=== PATIENT | female | born 1950 | race Caucasian/White ===

== ENCOUNTER 2019-08-02 13:39 | Outpatient (CLI) | payer MEDICARE, MEDICAID, SELFPAY ==
--- NOTE | 2019-08-02 13:30 | USCV_ITS ---
Noah Harris Age: 69 Gender: F : 1950 Exam Date: 08/02/2019 14:02 Ordering Phys: Candice Montague MD ([email or web address]) Technologist: Kitty Rajput Exam Location: [facility] [place] Indication: CAROTID ARTERY DISEASE Risk Factors: Previous Vascular Surgery: Right Brachial BP: / Left Brachial BP: / Right Left Velocity (cm/s) Spectral Plaque Velocity (cm/s) Spectral Plaque Syst/Diast Broadening Syst/Diast Broadening 87.10/ 18.70 Prox CCA 77.20 / 17.60 70.60/ 15.40 Mid CCA 84.90 / 26.50 70.60/ 20.90 Distal CCA 88.20 / 18.70 84.90/ 22.10 Prox ICA 67.30 / 15.40 72.80/ 19.80 Mid ICA 114.70/ 40.80 63.90/ 22.10 Distal ICA 125.70/ 36.40 97.00 ECA 68.40 1.20 ICA/CCA 1.48 Antegrade Vertebral Antegrade 51.80/ 18.70 cm/s 63.90/ 15.40 cm/s Tri Subclavian Tri FINDINGS Moderate heterogeneous plaques of the right bifurcation and proximal internal carotid artery. Patent stented segment in the left internal carotid artery. Mild to moderate heterogeneous plaques in the distal left ICA. Minimal plaques and intimal thickening in the common carotid arteries bilaterally. Antegrade flow in the vertebral arteries bilaterally. CONCLUSIONS Patent stented segment of the left ICA with no evidence of restenosis. Moderate heterogeneous plaques in the left distal ICA Moderate heterogeneous plaques of the right bifurcation and proximal internal carotid artery with velocity elevation consistent with 16-49% stenosis. No similar previous studies are available for comparison . Dr Aaron Rothman MD [facility] (Electronically Signed) Final Date: 04 August 2019 13:34 S
== END 2019-08-02 13:40 | disposition home or self-care (01) ==
LOC: RAD 13:47
PROVIDERS: Visit Provider Internal Medicine Cardiovascular Disease
DX: I65.23 Occlusion and stenosis of bilateral carotid arteries (principal); I63.9 Cerebral infarction, unspecified; Z95.9 Presence of cardiac and vascular implant and graft, unspecified
CPT/HCPCS: 93880

== ENCOUNTER → 2019-08-11 10:24 | Outpatient (BNVA) | payer MEDICARE, MEDICAID, SELFPAY | PROVIDERS: Visit Provider Nurse Practitioner Family | DX: I10 Essential (primary) hypertension (principal); M25.562 Pain in left knee; Q74.1 Congenital malformation of knee; I70.202 Unspecified atherosclerosis of native arteries of extremities, left leg | CPT/HCPCS: 73562 ==